=== PATIENT | female | born 1985 | race American Indian/Alaskan Native ===

== ENCOUNTER 2020-10-27 08:42 | Emergency (ER) | payer SELFPAY ==
[2020-10-27 08:57] VITALS: BP 130/85
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
--- NOTE | 2020-10-27 10:17 | XRay Report ---
Right thumb-3 views INDICATION: Thumb pain after fall. COMPARISON: None. IMPRESSION: No acute osseous abnormality. Soft tissues are normal. Normal alignment. Mild degener ative changes in the thumb greatest at the thumb MTP joint. Signer Name: Alexis Sierra MD Signed: 10/27/2020 10:12 AM Workstation Name: [id number]
== END 2020-10-27 10:55 ==
LOC: ED 08:42
DX: S60.011A Contusion of right thumb without damage to nail, initial encounter (principal); T76.21XA Adult sexual abuse, suspected, initial encounter; J45.909 Unspecified asthma, uncomplicated; F17.200 Nicotine dependence, unspecified, uncomplicated; F12.90 Cannabis use, unspecified, uncomplicated; F14.90 Cocaine use, unspecified, uncomplicated; Z72.89 Other problems related to lifestyle; Z98.890 Other specified postprocedural states; X58.XXXA Exposure to other specified factors, initial encounter; Y93.89 Activity, other specified; Y92.89 Other specified places as the place of occurrence of the external cause; Y99.8 Other external cause status
CPT/HCPCS: 99283